=== PATIENT | female | born 1980 | race Caucasian/White ===

== ENCOUNTER 2017-05-29 10:44 | Emergency (ER) | payer OTHER ==
[2017-05-29 11:02] VITALS: TEMP 98.4; BMI 31.8
[2017-05-29 13:30] VITALS: BP 126/88; PULSE 78
--- NOTE | 2017-05-29 14:33 | PDOC ---
History of Present Illness - General Chief Complaint: Abscess Boil Stated Complaint: ABSCESS ON CHEST Time Seen by Provider: 05/29/17 14:19 - History of Present Illness Initial Comments: 05/29/17 15:14 37yo woman with breast implants (2013, done in ) who presents with L breast discomfort for the past 10 days. States pain is 10/10 severity. No nipple discharge, recent trauma, or prior infection to the area. No fever or chills. PCP: Dr. Dumont Past History - Past Medical History Allergies/Adverse Reactions: Allergies Allergy/AdvReac Type Severity Reaction Status Date / Time No Known Allergies Allergy Verified 05/29/17 10:57 Home Medications: Ambulatory Orders NK [No Known Home Medication] 05/29/17 Asthma: No Cancer: No Cardiac Disorders: No COPD: No Diabetes: No HTN: No Seizures: No Thyroid Disease: No - Reproductive History (#): 3 Para: 2 - Immunization History Immunization Up to Date: Yes - Suicide/Smoking/Psychosocial Hx Smoking History: Never smoked Have you smoked in the past 12 months: No Information on smoking cessation initiated: No Hx Alcohol Use: No Drug/Substance Use Hx: No Substance Use Type: None Hx Substance Use Treatment: No *Physical Exam - Vital Signs Last Vital Signs Temp Pulse Resp BP Pulse Ox 98.4 F 78 16 126/88 98 05/29/17 10:58 05/29/17 13:30 05/29/17 13:30 05/29/17 13:30 05/29/17 13:30 - Physical Exam Comments: 05/29/17 19:40 L breast with deep soft tissue induration from the jose-aureolar area going superior medially, +tenderness, no erythema or skin discolaration. No L axilla LAD General Appearance: Yes: Nourished, Appropriately Dressed Medical Decision Making - Medical Decision Making 05/29/17 15:20 VSS afebrile Low suspicion for infection. Will order L breast ultrasound to assess indurated tissue. 05/29/17 19:43 Left Breast U/S: High-resolution [id number] left breast ultrasound is performed. Attention is made to the area of pain and palpable abnormality that the patient states she has. Intact-appearing breast implant is noted. In the retroareolar region of the left breast, there is a 0.3 cm complicated cyst noted. Follow-up in 6 months is recommended for short-term surveillance. No sonographically evident suspicious finding is seen in this left breast. Therefore the palpable abnormality should be assessed clinically and any decision to perform any further workup or biopsy should be made solely on clinical grounds. Consider performing breast MRI to evaluate intactness. IMPRESSION: Left breast ultrasound: No sonographically evident suspicious findings seen , attention paid to the area of pain and palpable abnormality in the approximate 10 to 11:00 position of the left breast. Incidental note made of a complicated 0.3 cm cystic lesion in the retroareolar region of the left breast. Six-month follow-up targeted left breast ultrasound is recommended for sonographic short- term surveillance. BI-RADS Category 3-probably benign, short interval follow-up is recommended. 05/29/17 19:44 Cyst is likely benign. Patient's pain is improved with morphine. Will discharge home with close follow-up with Dr. Mckenzie. *DC/Admit/Observation/Transfer Diagnosis at time of Disposition: Cyst, breast - Discharge Dispostion Disposition: HOME Condition at time of disposition: Stable Admit: No - Referrals Referrals: Bernardo Mckenzie MD [Staff Physician] - Robert Dumont MD [Primary Care Provider] - - Patient Instructions Additional Instructions: A small likely benign cyst (0.3cm) was found under your left nipple area. Please make an appointment with Dr. Mckenzie, a breast surgeon, in 1-2 weeks to discuss these findings. You can take Naproxen (Alleve) as needed for pain. Please return to the Emergency Department if you have new, worsening, or concerning systems. - Post Discharge Activity
[2017-05-29] MEDS ORDERED: morphine SULFATE 4 MG/ML VIAL ONE (14:41)
--- NOTE | 2017-05-29 14:57 | PDOC ---
Attending Attestation - Resident Resident Name: Marilyn Young - ED Attending Attestation I have performed the following: I have examined & evaluated the patient, The case was reviewed & discussed with the resident, I agree w/resident's findings & plan, Exceptions are as noted - HPI HPI: 05/29/17 14:55 37-year-old female with history of breast augmentation in 2013 presents now with about 10-12 days of increasing swelling and pain to her left breast. No redness or drainage, no fevers or chills, no injuries. Had similar swelling and discomfort in the past that resolved spontaneously after a few days, presents for evaluation today. - Physicial Exam PE: 05/29/17 14:58 Afebrile. Breast exam: Performed with Dr. Marilyn Young at bedside: no erythema/warmth. Palpable subcutaneous induration/cyst in the L breast extending from 10 o'clock along the areola to the inner L upper quadrant of the L breast. tender to palpation, no drainage from nipple no axillary LAD - Medical Decision Making 05/29/17 15:00 Patient seen and evaluated with the resident. I agree with the overall evaluation, assessment, and management with the following summary of visit: 37-year-old female with uncomfortable left breast cyst/induration, no evidence of infection on exam. Left breast ultrasound Breast Surgery referral 05/29/17 16:44 ultrasound without definitive abnormality. 0.3cm cystic lesion retroalveolar on left side, ? correlation. implants appear intact on sono. can consider MRI for further evaluation. reassured, will give f[facility]u at [facility], understands return criteria.
== END 2017-05-29 17:13 | disposition home or self-care (01) ==
LOC: JER 10:44
DX: N60.02 Solitary cyst of left breast (principal); Z98.82 Breast implant status
CPT/HCPCS: 76641-TC-LT; 84703; 99281-25

== ENCOUNTER 2017-06-14 15:57 | Emergency (ER) | payer OTHER ==
[2017-06-14 16:06] VITALS: TEMP 98.2; BMI 32.8
--- NOTE | 2017-06-14 16:06 | PDOC ---
Rapid Medical Evaluation Time Seen by Provider: 06/14/17 16:00 Medical Evaluation: Allergies Allergy/AdvReac Type Severity Reaction Status Date / Time No Known Allergies Allergy Verified 06/14/17 15:59 06/14/17 16:04 The patient presents with a chief complaint of: Pain with urination, vomiting, R back pain for two days. Last took motrin on 12:00pm I have performed a brief in-person evaluation of this patient; Pertinent physical exam findings (+) CVA tenderness of the R. I have ordered the following: CBC, CMP, Lipase, UA, UC, Upreg The patient will proceed to the ED for further evaluation.
--- NOTE | 2017-06-14 16:28 | PDOC ---
History of Present Illness - General Chief Complaint: Pain, Acute Stated Complaint: BACK PAIN, URINARY PROBLEM Time Seen by Provider: 06/14/17 16:00 - History of Present Illness Initial Comments: 06/14/17 16:28 Ms. Guzmán is a 37 yo female w/ no pmh who presents complaining of 2 days of pain with urination. She reports she has been drinking a lot of cranberry juice lately for these symptoms but they have not stopped. She further reports she had one episode of vomiting around midnight and has had more or less constant nausea. She also reports Right sided tenderness that tracks downward. She had an episode of subjective fever today as well for which she took motrin (at approximately noon) and has recently had loose stool over this same time period. The patient denies chest pain, shortness of breath, headache and dizziness. Denies chills and constipation. Denies dysuria, frequency, urgency and hematuria. Allergies: NKDA Past History - Past Medical History Allergies/Adverse Reactions: Allergies Allergy/AdvReac Type Severity Reaction Status Date / Time No Known Allergies Allergy Verified 06/14/17 15:59 Home Medications: Ambulatory Orders Levofloxacin 750 mg PO DAILY #5 tablet 06/14/17 Asthma: No Cancer: No Cardiac Disorders: No COPD: No Diabetes: No HTN: No Seizures: No Thyroid Disease: No - Reproductive History (#): 3 Para: 2 - Immunization History Immunization Up to Date: Yes - Suicide/Smoking/Psychosocial Hx Smoking History: Never smoked Have you smoked in the past 12 months: No Information on smoking cessation initiated: No Hx Alcohol Use: No Drug/Substance Use Hx: No Substance Use Type: None Hx Substance Use Treatment: No Review of Systems - Review of Systems Comments:: 06/14/17 16:38 GENERAL/CONSTITUTIONAL: +Fever as described No chills. No weakness. HEAD, EYES, EARS, NOSE AND THROAT: No change in vision. No ear pain or discharge. No sore throat. CARDIOVASCULAR: No chest pain or shortness of breath RESPIRATORY: No cough, wheezing, or hemoptysis. GASTROINTESTINAL: +Nausea with 1 episode of vomiting and recent loose stool. RLQ pain that tracks downward towards vaginal area. No constipation. GENITOURINARY: +Dysuria over the last 2 days MUSCULOSKELETAL: No joint or muscle swelling or pain. No neck or back pain. SKIN: No rash NEUROLOGIC: No headache, vertigo, loss of consciousness, or change in strength/ sensation. ENDOCRINE: No increased thirst. No abnormal weight change HEMATOLOGIC/LYMPHATIC: No anemia, easy bleeding, or history of blood clots. ALLERGIC/IMMUNOLOGIC: No hives or skin allergy. *Physical Exam - Vital Signs Last Vital Signs Temp Pulse Resp BP Pulse Ox 98.2 F 88 18 105/73 100 06/14/17 16:01 06/14/17 16:01 06/14/17 16:01 06/14/17 16:01 06/14/17 16:01 - Physical Exam Comments: 06/14/17 16:40 GENERAL: Awake, alert, and fully oriented, in no acute distress HEAD: No signs of trauma, normocephalic, atraumatic EYES: PERRLA, EOMI, sclera anicteric, conjunctiva clear ENT: Auricles normal inspection, hearing grossly normal, nares patent, oropharynx clear without exudates. Moist mucosa NECK: Normal ROM, supple, no lymphadenopathy, JVD, or masses LUNGS: No distress, speaks full sentences, clear to auscultation bilaterally HEART: Regular rate and rhythm, normal S1 and S2, no murmurs, rubs or gallops, peripheral pulses normal and equal bilaterally. ABDOMEN: +TTP in RLQ with associated Right CVA tenderness. Soft, normoactive bowel sounds. No guarding, no rebound. No masses EXTREMITIES: Normal inspection, Normal range of motion, no edema. No clubbing or cyanosis. NEUROLOGICAL: Cranial nerves II through XII grossly intact. Normal speech, normal gait, no focal sensorimotor deficits SKIN: Warm, Dry, normal turgor, no rashes or lesions noted. ED Treatment Course - LABORATORY CBC & Chemistry Diagram: 06/14/17 16:22 06/14/17 16:22 Medical Decision Making - Medical Decision Making 06/14/17 17:33 Ms. Puri presents with dysuria, CVA tenderness, and fevers all consistent with pyelonephritis. UA confirms as below. Patient has no complicating factors, will start Levofloxacin in ED and discharge to home with PO Levofloxocin Rx. Patient will take Rx and follow-up as needed. *DC/Admit/Observation/Transfer Diagnosis at time of Disposition: Pyelonephritis - Discharge Dispostion Disposition: HOME - Prescriptions Prescriptions: Levofloxacin 750 mg PO DAILY #5 tablet - Referrals - Patient Instructions Printed Discharge Instructions: DI for Kidney Infection Additional Instructions: Please take antibiotics as proscribed. Return to ER if any continued fever, nausea, vomiting, pain, or unable to fill prescription. Follow-up with PCP in 1- 2 days for further evaluation. - Post Discharge Activity
--- NOTE | 2017-06-14 16:42 | PDOC ---
Attending Attestation - Resident Resident Name: John Watt - ED Attending Attestation I have performed the following: I have examined & evaluated the patient, The case was reviewed & discussed with the resident, I agree w/resident's findings & plan, Exceptions are as noted - HPI HPI: 06/14/17 16:41 dysuria and back pain - Physicial Exam PE: 06/14/17 16:41 VSS/Non-Toxic - Medical Decision Making 06/14/17 16:[address] Watt's Assessment and Plan
[2017-06-14] MEDS ORDERED: ONDANSETRON 4 MG/2 ML VIAL IVPUSH ONE (16:46)
[2017-06-14] MEDS ORDERED: SODIUM CHLORIDE 1,000 ML IV STA (16:46)
[2017-06-14] MEDS ORDERED: ONDANSETRON 4 MG/2 ML VIAL ONE (16:55)
[2017-06-14 17:02] LABS: BASOPHIL 0.4 % (0-2.0); MCH 26.2 pg (25.7-33.7); MCHC 32.7 g/dl (32.0-36.0); MEAN CELL VOLUME 80.3 fl (80-96); MEAN PLT VOLUME 8.1 fl (7.5-11.1); NEUTROPHILS 91.8 % (42.8-82.8); PLATELET COUNT 256 K/MM3 (134-434); WHITE BLOOD COUNT 17.9 K/mm3 (4.0-10.0)
[2017-06-14 17:08] LABS: URINE APPEARANCE SLCLOUDY; URINE BILIRUBIN NEGATIVE (NEGATIVE); URINE BLOOD 2+ (NEGATIVE); URINE COLOR AMBER; URINE GLUCOSE (UA) NEGATIVE (NEGATIVE); URINE KETONE NEGATIVE (NEGATIVE); URINE LEUK ESTERASE 1+ (NEGATIVE); URINE NITRITE NEGATIVE (NEGATIVE); URINE PROTEIN 1+ (NEGATIVE); URINE UROBILINOGEN 4.0 E.U/dl mg/dL (0.2-1.0)
[2017-06-14 17:11] LABS: URINE MUCUS RARE; URINE RBC 3 /hpf (0-3); URINE WBC 46 /hpf (3-5)
[2017-06-14] MEDS ORDERED: KETOROLAC TROMETHAMINE 15 MG/ML VIAL IVPUSH ONE (17:12)
[2017-06-14] MEDS ORDERED: LEVOFLOXACIN 500 MG IVPB 500 MG/100 ML BAG IVPB ONE ×2 (17:19→17:22)
[2017-06-14] MEDS ORDERED: KETOROLAC TROMETHAMINE 15 MG/ML VIAL ONE (17:19)
[2017-06-14 18:00] LABS: ALBUMIN 3.5 g/dl (3.4-5.0); ANION GAP 12 (8-16); CALCIUM 8.8 mg/dL (8.5-10.1); CO2 26 mmol/L (21-32); GLUCOSE,RANDOM 125 mg/dL (74-106); SGPT/ALT 34 U/L (12-78)
[2017-06-14 18:03] LABS: ALK PHOS 110 U/L (45-117); BILIRUBIN,TOTAL 1.3 mg/dL (0.2-1.0); CREATININE 1.4 mg/dL (0.55-1.02); SGOT/AST 34 U/L (15-37); TOT PROT 7.8 g/dl (6.4-8.2)
[2017-06-14] MEDS ORDERED: ACETAMINOPHEN 325 MG TABLET (FP) PO ONE (18:09)
[2017-06-14] MEDS ORDERED: ACETAMINOPHEN 325 MG TABLET (FP) ONE (18:10)
[2017-06-14 18:22] VITALS: BP 117/73; PULSE 91
[2017-06-14 20:24] LABS: URINE LEUK ESTERASE 1+ (NEGATIVE)
== END 2017-06-14 18:23 | disposition home or self-care (01) ==
LOC: JER 15:57
PROC: 3E0333Z Introduction of Anti-inflammatory into Peripheral Vein, Percutaneous Approach (ICD-10-PCS; principal; 2017-06-14)
PROC: 3E03329 Introduction of Other Anti-infective into Peripheral Vein, Percutaneous Approach (ICD-10-PCS; 2017-06-14)
PROC: 3E033GC Introduction of Other Therapeutic Substance into Peripheral Vein, Percutaneous Approach (ICD-10-PCS; 2017-06-14)
PROC: 3E0337Z Introduction of Electrolytic and Water Balance Substance into Peripheral Vein, Percutaneous Approach (ICD-10-PCS; 2017-06-14)
DX: N12 Tubulo-interstitial nephritis, not specified as acute or chronic (principal)
CPT/HCPCS: 36415; 80053; 81003; 81015; 83690; 84703; 85025; 87086; 99284-25

== ENCOUNTER 2018-06-04 00:55 | Emergency (ER) | payer OTHER ==
[2018-06-04 01:21] VITALS: BP 119/61; PULSE 76; TEMP 98.9; BMI 33.1
--- NOTE | 2018-06-04 02:24 | PDOC ---
Attending Attestation - Resident Resident Name: Cintia Trejo - MARCIE Attending Attestation I have performed the following: I have examined & evaluated the patient, The case was reviewed & discussed with the resident, I agree w/resident's findings & plan, Exceptions are as noted - HPI HPI: 06/04/18 04:52 Ms Puri is a 38 yo F who presents to the ER with a complaint of left breast pain Pt symptoms began towards the end of last year She was evaluated with Ultrasound which demonstrated a complicated cyst She was seen by breast specialist in follow up Breast US was repeated in October 2017 and demonstrated stable cyst Pt pain resolved She returns to the ER with a complaint of left breast pain No fevers or chills No skin changes No nipple drainage Pt is not breast feeding No trauma to the area Pt does have implants, no changes that she has noticed - Physicial Exam PE: 06/04/18 04:58 Pt is awake and alert Answers questions appropriately RRR CTA Left breast firm area palpated superior breast No expressible drainage Well healed surgical scar left breast - Medical Decision Making 06/04/18 22:54 Will disharge to home Will ask pt to follow up with breast surgeon - there is no sign at this time of cellulitis or abscess Follow up with PMD already scheduled for two days from now 06/04/18 22:54
--- NOTE | 2018-06-04 02:45 | PDOC ---
History of Present Illness - General Chief Complaint: Pain Stated Complaint: PAIN LEFT BREAST Time Seen by Provider: 06/04/18 01:20 - History of Present Illness Initial Comments: 06/04/18 04:00 Patient is a 38 year old female with history of bilateral breast implants (2014) , presented with worsening bilateral breast pain worse on the left than the right that started about a week ago. Patient described pain as burning, 10/10, intermittent pain, mildly relieved by Motrin, with more pain noted on the 10:00- 11:00 position of the left breast. No redness, swelling or discharge noted. Patient added breast pain started about a year ago, intermittent pain, where a complicated cyst was noted on her left breast. A repeat ultrasound was done in 10/2017, which noted cyst was stable and benign. Last follow-up with her breast doctor was in December where patient reported the breast pain was better. Patient denies fever, chills, headache, dizziness, chest pain, SOB, palpitations, abdominal pain, diarrhea, constipation, urinary symptoms. Past History - Past Medical History Allergies/Adverse Reactions: Allergies Allergy/AdvReac Type Severity Reaction Status Date / Time No Known Allergies Allergy Verified 12/28/17 15:50 Home Medications: Ambulatory Orders Amoxicillin - [Amoxicillin 500mg Capsule -] 500 mg PO BID #20 capsule 12/28/17 Acetaminophen W/ Codeine #3 [Tylenol # 3 -] 1 tab PO BID #6 tablet MDD 2 Methocarbamol [Robaxin -] 500 mg PO TID PRN #21 tablet 06/04/18 Asthma: No Cancer: No Cardiac Disorders: No COPD: No Diabetes: No HTN: No Seizures: No Thyroid Disease: No - Reproductive History (#): 3 Para: 2 - Immunization History Immunization Up to Date: Yes - Suicide/Smoking/Psychosocial Hx Smoking History: Never smoked Have you smoked in the past 12 months: No Hx Alcohol Use: No Drug/Substance Use Hx: No Substance Use Type: None Hx Substance Use Treatment: No Review of Systems - Review of Systems Constitutional: No: Chills, Fever, Night Sweats, Weakness HEENTM: No: Blurred Vision, Double Vision, Ear Discharge, Nose Congestion, Mouth Pain, Difficulty Swallowing Respiratory: No: Cough, Shortness of Breath Cardiac (ROS): No: Chest Pain, Lightheadedness ABD/GI: No: Constipated, Diarrhea, Nausea, Vomiting, Abdominal cramping : No: Burning, Dysuria *Physical Exam - Vital Signs Last Vital Signs Temp Pulse Resp BP Pulse Ox 98.9 F 76 18 119/61 99 06/04/18 01:00 06/04/18 01:00 06/04/18 01:00 06/04/18 01:00 06/04/18 01:00 - Physical Exam Comments: 06/04/18 04:00 General:awake, alert, oriented, not in acute distress Head:no signs of head trauma HEENT:PERRLA, EOMI, sclerae anicteric, no nasal discharge, non-erythematous oropharynx, moist mucous membranes Neck:soft, supple, trachea midline, without LAD Breast b/l: tender to palpation, non erythematous, no swelling, no discharge Lung:clear to auscultation bilaterally Heart:regular rate and rhythm, normal S1/S2, no m,r,g Abdomen:soft, nontender, nondistended, NABS Ext:+2 pulses, no peripheral edema Moderate Sedation - Procedure Monitoring Vital Signs: Procedure Monitoring Vital Signs Temperature 98.9 F 06/04/18 01:00 Pulse Rate 76 06/04/18 01:00 Respiratory Rate 18 06/04/18 01:00 Blood Pressure 119/61 06/04/18 01:00 O2 Sat by Pulse Oximetry (%) 99 06/04/18 01:00 Medical Decision Making - Medical Decision Making 06/04/18 03:21 Patient is a 38 year old female with history of bilateral breast implants (2014) , presented with worsening bilateral breast pain worse on the left than the right that started about a week ago. DDx include but not limited to MSK, left breast cyst or abscess, breast implant complications Advised patient to follow up with PCP and breast doctor (Dr. Tirado), to discuss worsening pain and address possible causes of the breast pain. Prescribed medications for pain. Dispo. *DC/Admit/Observation/Transfer Diagnosis at time of Disposition: Breast pain in female - Discharge Dispostion Disposition: HOME Condition at time of disposition: Stable Decision to Admit order: No - Prescriptions Prescriptions: Acetaminophen W/ Codeine #3 [Tylenol # 3 -] 1 tab PO BID #6 tablet MDD 2 Methocarbamol [Robaxin -] 500 mg PO TID PRN #21 tablet PRN Reason: Pain - Referrals Referrals: Tiffany Jaramillo MD [Primary Care Provider] - - Patient Instructions Printed Discharge Instructions: DI for Breast Pain (Mastalgia) Additional Instructions: You were seen because you had breast pain. You may take the following medications which may help with the pain. 1. Continue taking Motrin as needed for pain. 2. We have prescribed Tylenol #3, which you may take as prescribed for severe pain. 3. Take Robaxin as prescribed, which is a muscle relaxant. Please follow-up with your primary care doctor (Dr. Jaramillo) on Sunday. Call 911 or go to the ED if with any fever, chills, breast redness, swelling or discharge or any new concerns noted. Print Language: SERBIAN - Post Discharge Activity
== END 2018-06-04 03:09 | disposition home or self-care (01) ==
LOC: JER 00:55
DX: N64.4 Mastodynia (principal); Z96.89 Presence of other specified functional implants
CPT/HCPCS: 99281-25

== ENCOUNTER 2020-06-30 05:40 | Inpatient (IN) | payer OTHER ==
[2020-06-30 06:11] VITALS: BMI 35.2
[2020-06-30] MEDS ORDERED: CITRIC ACID/SODIUM CITRATE 30 ML UNIT-DOSE CUP PO ONE (06:45)
[2020-06-30] MEDS ORDERED: ELECTROLYTE-148 SOLN 1,000 ML IV ONE (07:04)
[2020-06-30] MEDS ORDERED: OXYTOCIN 10 UNITS/ML VIAL ONE ×3 (07:29→09:01)
[2020-06-30] MEDS ORDERED: PHENYLEPHRINE HCL 10 MG/1 ML SINGLE DOSE VIAL ONE (07:29)
[2020-06-30] MEDS ORDERED: ePHEDrine SULFATE 50 MG/1 ML AMPULE ONE (07:30)
[2020-06-30] MEDS ORDERED: morphine SULFATE/PF 1 MG/2 ML (2cc Syringe - QUVA) ONE (07:38)
[2020-06-30] MEDS ORDERED: ONDANSETRON 4 MG/2 ML VIAL ONE (07:48)
[2020-06-30] MEDS ORDERED: GLYCOPYRROLATE 0.2 MG/1 ML VIAL ONE (07:48)
[2020-06-30] MEDS ORDERED: ONDANSETRON 4 MG/2 ML VIAL IVPUSH PRN (07:58)
[2020-06-30] MEDS ORDERED: LIGASURE IMPACT TP ONE (08:16)
[2020-06-30] MEDS ORDERED: KETAMINE HCL 500 MG/10 ML VIAL ONE (08:43)
[2020-06-30] MEDS ORDERED: MIDAZOLAM HCL 2 MG/2 ML SINGLE DOSE VIAL ONE (08:43)
[2020-06-30] MEDS ORDERED: oxyCODONE HCL 5 MG TABLET PO PRN (09:40)
[2020-06-30] MEDS ORDERED: ONDANSETRON 4 MG/2 ML VIAL IVPB PRN (09:40)
[2020-06-30] MEDS ORDERED: ACETAMINOPHEN 1000 MG/100 ML BAG IVPB PRN (09:40)
[2020-06-30] MEDS ORDERED: SENNOSIDES/DOCUSATE COMBO (SENNA PLUS) TABLET (UD) PO PRN (09:40)
[2020-06-30] MEDS ORDERED: IBUPROFEN 800 MG/8 ML IJ IVPB PRN (09:40)
[2020-06-30] MEDS ORDERED: PRENATAL VITAMINS W/ FOLIC ACID TABLET (FP) PO SCH (10:00)
[2020-06-30] MEDS ORDERED: ACETAMINOPHEN 1000 MG/100 ML BAG IVPB ONE (10:21)
[2020-06-30] MEDS: OXYTOCIN 20 UNITS in 0.9% NS 20 UNIT/1,000 ML INFUS.BAG IV SCH ×2 (10:30→18:25)
[2020-06-30] MEDS ORDERED: ACETAMINOPHEN INJECTION 100 ML IVPB ONE (10:33)
[2020-06-30] MEDS: PRENATAL VITAMINS W/ FOLIC ACID TABLET (FP) PO SCH (10:45)
[2020-06-30] MEDS: IBUPROFEN 600 MG TABLET (FP) PO PRN (22:35)
[2020-06-30] MEDS: SIMETHICONE 80 MG TAB.CHEW (FP) PO PRN (22:35)
[2020-06-30] MEDS: ACETAMINOPHEN 325 MG TABLET (FP) PO PRN (22:36)
[2020-07-01] MEDS: IBUPROFEN 600 MG TABLET (FP) PO PRN ×4 (06:27→23:46)
[2020-07-01] MEDS: ACETAMINOPHEN 325 MG TABLET (FP) PO PRN ×4 (06:27→23:45)
[2020-07-01] MEDS: SIMETHICONE 80 MG TAB.CHEW (FP) PO PRN ×4 (06:28→23:46)
[2020-07-01 08:51] LABS: BASO % 0.3 % (0-2.0); HEMOGLOBIN 10.5 GM/dL (10.7-15.3); LYMPH % 8.7 % (8-40); MCH 27.4 pg (25.7-33.7); MCHC 32.8 g/dl (32.0-36.0); MEAN CELL VOLUME 83.7 fl (80-96); MEAN PLT VOLUME 8.2 fl (7.5-11.1); MONO % 4.9 % (3.8-10.2); NEUT % 85.1 % (42.8-82.8); PLATELET COUNT 229 K/MM3 (134-434); RBC 3.82 M/mm3 (3.60-5.2); RDW 15.4 % (11.6-15.6); WHITE BLOOD COUNT 13.2 K/mm3 (4.0-10.0)
[2020-07-01] MEDS ORDERED: BISACODYL 10 MG SUPP.RECT RC PRN (09:40)
[2020-07-01] MEDS: PRENATAL VITAMINS W/ FOLIC ACID TABLET (FP) PO SCH (10:53)
[2020-07-01] MEDS: OXYTOCIN 20 UNITS in 0.9% NS 20 UNIT/1,000 ML INFUS.BAG IV SCH (23:44)
[2020-07-02] MEDS: IBUPROFEN 600 MG TABLET (FP) PO PRN (07:42)
[2020-07-02] MEDS: SIMETHICONE 80 MG TAB.CHEW (FP) PO PRN (07:42)
[2020-07-02] MEDS: ACETAMINOPHEN 325 MG TABLET (FP) PO PRN (07:42)
[2020-07-02] MEDS: PRENATAL VITAMINS W/ FOLIC ACID TABLET (FP) PO SCH (09:59)
[2020-07-02 11:39] VITALS: BP 131/88; PULSE 87; TEMP 98.4
== END 2020-07-02 14:30 | disposition home or self-care (01) | DRG 540 ==
LOC: JLDR 05:40 → J3W 11:09
PROVIDERS: ADMIT Specialist; ATTEND Specialist
PROC: 10D00Z1 Extraction of Products of Conception, Low, Open Approach (ICD-10-PCS; principal; 2020-06-30)
PROC: 0UT70ZZ Resection of Bilateral Fallopian Tubes, Open Approach (ICD-10-PCS; 2020-06-30)
DX: O34.219 Maternal care for unspecified type scar from previous cesarean delivery (principal); O36.0990 Maternal care for other rhesus isoimmunization, unspecified trimester, not applicable or unspecified; Z3A.38 38 weeks gestation of pregnancy; Z37.0 Single live birth; Z30.2 Encounter for sterilization
CPT/HCPCS: 36415; 85025; 85461; 86780; 88302-TC; 88307-TC; J0131